=== PATIENT | female | born 1960 | race Caucasian/White ===

== ENCOUNTER 2018-12-30 11:21 | Emergency (ER) | payer BC, OTHER ==
[~2018-12-30] VITALS: Ht 177.8 cm; Wt 90.7 kg
[2018-12-30 11:52] VITALS: BP 147/87
[2018-12-30] MEDS ORDERED: LORazepam 2MG/ML-1ML VIAL IV ONE (12:00)
[2018-12-30 12:42] LABS: Basophils # (auto) 0 uL; Hematocrit 28.4 % (36.0-46.0); Hemoglobin 8.5 g/dL (12.2-16.2); Mean Corpuscular Hemoglobin 17.6 pg (28.0-32.0); Mean Corpuscular Hgb Conc. 29.9 g/dL (32.0-36.0); Mean Corpuscular Volume 58.9 fL (80.0-100.0); Red Blood Cells 4.82 10^6/uL (4.0-5.20); White Blood Cell 3.4 10^3/uL (4.4-10.8)
[2018-12-30 12:44] LABS: Basophils % (auto) 0.6 % (0.0-2.0); Eosinophils # (auto) 0.1 uL; Eosinophils % (auto) 2.2 % (0.0-7.0); Lymphocytes # (auto) 0.8 uL; Lymphocytes % (auto) 23.8 % (10.0-50.0); Monocytes # (auto) 0.3 uL; Monocytes % (auto) 7.5 % (0.0-12.0); Neutrophils # (auto) 2.3 uL; Neutrophils % (auto) 65.9 % (37.0-80.0); Nucleated Red Blood Cells % 0.1 %; Platelet Count (auto) 319 10^3/uL (140-450)
[2018-12-30 12:45] LABS: Red Cell Distribution Width 22.9 % (11.8-14.3)
[2018-12-30 12:55] LABS: Albumin 3.7 g/dL (3.4-5.0); Calcium 8.5 mg/dL (8.5-10.1); Potassium 3.9 mmol/L (3.5-5.1)
[2018-12-30 12:59] LABS: BUN/Creatinine Ratio 20.6; Bilirubin, Total 0.4 mg/dL (0.2-1.0); Total Protein 6.4 g/dL (6.4-8.2)
== END 2018-12-30 15:19 | disposition home or self-care (01) ==
LOC: EDBD 11:21 → ER 11:21
DX: R56.9 Unspecified convulsions (principal); D64.9 Anemia, unspecified; Z86.73 Personal history of transient ischemic attack (TIA), and cerebral infarction without residual deficits
CPT/HCPCS: 36415; 70450; 80053; 82962; 83735; 85025; 94761; 96374; 99284; J2060